=== PATIENT | female | born 1965 | race Caucasian/White ===

== ENCOUNTER 2019-03-02 11:21 | Day surgery (SDC) | payer OTHER ==
[~2019-03-02] VITALS: Ht 154.9 cm; Wt 56.7 kg
[~2019-03-02 11:21] MED LIST: CALCIUM-MAGNES1 EAC2 PO
== END 2019-03-02 13:30 | disposition home or self-care (01) ==
LOC: ORSCSDS 11:21
PROVIDERS: Orthopaedic Surgery
PROC: 01N54ZZ Release Median Nerve, Percutaneous Endoscopic Approach (ICD-10-PCS; principal; 2019-03-02 12:45)
DX: G56.01 Carpal tunnel syndrome, right upper limb (principal)
CPT/HCPCS: J0690; J2250; J2704; J3010; J7120